=== PATIENT | female | born 1990 | race Caucasian/White ===

== ENCOUNTER 2016-12-15 11:33 | Emergency (ER) | payer OTHER ==
[~2016-12-15] VITALS: Ht 165.1 cm; Wt 289.4 kg
[~2016-12-15 11:33] MED LIST: BACTRIM,SEPT1 TABLET PO; BUTALB-APAP-CA1 EACH PO; CLEOCIN300 MG PO; GRALISE300 MG PO; INDOCIN50 MG PO; NORCO 5/3251 TABLET PO; VALIUM5 MG PO
[2016-12-15 13:49] LABS: HEMATOCRIT 46.4 % (36.0-46.0); MCH 29.6 PG (29.0-34.0); MCHC 31.7 G/DL (30.0-36.0); MCV 93.4 FL (83-99); MEAN PLAT.VOLUME 10.4 uM^3 (9.5-12.4); PLATELET COUNT 238 K/uL (156-360); RBC DIS.WIDTH-CV 15.3 % (11.8-14.6); RBC DIS.WIDTH-SD 52.4 % (39-53); RED BLOOD COUNT 4.97 M/uL (3.80-5.20); WHITE BLOOD COUNT 12.4 K/uL (4.1-10.2)
[2016-12-15 14:02] LABS: CHLORIDE 102 mEq/L (99-109); POTASSIUM 4.5 mEq/L (3.7-5.4); SODIUM 139 mEq/L (136-147)
[2016-12-15 14:03] LABS: GLUCOSE 133 mg/dL (70-99)
[2016-12-15 14:05] LABS: ANION GAP 8 MEQ/L (2-14)
[2016-12-15 14:07] LABS: GFR ESTIMATE (CALCULATED) > 59 mL/min/
[2016-12-15 14:08] LABS: UREA NITROGEN (BUN) 10 mg/dL (9-23)
[2016-12-15 14:14] LABS: TROP-I INTERPRETATION NEGATIVE; TROPONIN-I 0.01 ng/mL (0.0-0.30)
[2016-12-15 14:15] LABS: QUANTITATIVE HCG < 4.0 MIU/ML
[2016-12-15 17:03] LABS: TROP-I INTERPRETATION NEGATIVE; TROPONIN-I < 0.01 ng/mL (0.0-0.30)
[2016-12-15 17:12] LABS: ADD MIUA? YES; BILIRUBIN NEGATIVE; BLOOD LARGE; COLOR YELLOW ((YELLOW)); GLUCOSE (STRIP) NEGATIVE; KETONES NEGATIVE; LEUKOCYTES NEGATIVE; NITRITE NEGATIVE; PROTEIN (STRIP) 30; SPECIFIC GRAVITY 1.018 (1.000-1.030); UROBILINOGEN 0.2 MG/DL (0.2-1.0)
[2016-12-15 17:15] LABS: BACTERIA NONE SEEN /HPF; EPITHELIAL CELLS 1+ /HPF; MUCUS TRACE /LPF; RED BLOOD CELLS TNTC /HPF (0-5); UCUL ADDED? YES
[2016-12-15] MEDS ORDERED: NAPROXEN500 MG PO (17:51)
[2016-12-15 18:13] VITALS: BP 156/89
== END 2016-12-15 18:15 | disposition home or self-care (01) ==
LOC: EME 11:33
PROVIDERS: Physician Assistant Medical
DX: M54.2 Cervicalgia (principal); R07.9 Chest pain, unspecified; M79.89 Other specified soft tissue disorders; J45.909 Unspecified asthma, uncomplicated; F32.9 Major depressive disorder, single episode, unspecified; F31.9 Bipolar disorder, unspecified; F41.9 Anxiety disorder, unspecified; Z88.0 Allergy status to penicillin; F17.200 Nicotine dependence, unspecified, uncomplicated
CPT/HCPCS: 71020; 78582; 80048; 81003; 84484; 84702; 85027; 85379; 87086; 93005; 93971; 99281; 99285; A9540; A9567; J1885

== ENCOUNTER 2017-09-23 23:51 | Inpatient (IN) | payer OTHER ==
[~2017-09-23] VITALS: Ht 165.1 cm; Wt 343.0 kg
[~2017-09-23 23:51] MED LIST changes: +NAPROXEN500 MG PO
[2017-09-24] VITALS (15 sets, daily range): BP systolic 119–167; BP diastolic 69–117
[2017-09-24 02:01] LABS: HEMATOCRIT 42.5 % (36.0-46.0); MCH 25.4 PG (29.0-34.0); MCHC 28.2 G/DL (30.0-36.0); MCV 89.9 FL (83-99); NRBC (%) 0.1 /100 WBC (0-0); PLATELET COUNT 236 K/uL (156-360); RBC DIS.WIDTH-CV 20.4 % (11.8-14.6); RBC DIS.WIDTH-SD 64.6 % (39-53); RED BLOOD COUNT 4.73 M/uL (3.80-5.20); WHITE BLOOD COUNT 13.7 K/uL (4.1-10.2)
[2017-09-24 02:10] LABS: CHLORIDE 103 mEq/L (99-109); POTASSIUM 5.7 mEq/L (3.7-5.4); SODIUM 139 mEq/L (136-147)
[2017-09-24 02:12] LABS: GLUCOSE 127 mg/dL (70-99)
[2017-09-24 02:15] LABS: CREATININE 0.9 mg/dL (0.6-1.3); GFR ESTIMATE (CALCULATED) > 59 mL/min/
[2017-09-24 02:16] LABS: UREA NITROGEN (BUN) 24 mg/dL (9-23)
[2017-09-24 02:22] LABS: TROP-I INTERPRETATION NEGATIVE; TROPONIN-I 0.17 ng/mL (0.0-0.30)
[2017-09-24 06:28] LABS: TROP-I INTERPRETATION NEGATIVE; TROPONIN-I 0.12 ng/mL (0.0-0.30)
[2017-09-24 07:15] LABS: COMMENTS - BLOOD GASES A+C+; DEVICE HHNC; FI02 80 %; O2 FLOW 40 L/MIN; SITE LR; TOTAL RESP RATE 22 resp/min
[2017-09-24 07:16] LABS: BICARBONATE 30.3 mEq/L (22-26); CARBOXY HGB 4.4 % (0-5); O2 SATURATION (CALCULATED) 96.3 % (95-99); PCO2 69 mm Hg (35-45); PO2 77 mm Hg (80-100); pH 7.25 (7.35-7.45)
[2017-09-24 07:19] LABS: BASE EXCESS 1.3 mEq/L (-3 to +3)
[2017-09-24 12:17] LABS: SITE LR
[2017-09-24 12:18] LABS: COMMENTS - BLOOD GASES A+C+; DEVICE VENT; FI02 60 %; PEEP 5 CM/H20; PRES. SUPPORT 15 CM/H2O; TOTAL RESP RATE 20 resp/min; pH 7.23 (7.35-7.45)
[2017-09-24 12:19] LABS: BASE EXCESS 2.1 mEq/L (-3 to +3); BICARBONATE 31.8 mEq/L (22-26); CARBOXY HGB 3.2 % (0-5); METHEMOGLOBIN 0.9 % (0-1.5); PCO2 76 mm Hg (35-45); PO2 88 mm Hg (80-100)
[2017-09-24 12:30] LABS: TROP-I INTERPRETATION NEGATIVE; TROPONIN-I 0.13 ng/mL (0.0-0.30)
[2017-09-24 18:46] LABS: COMMENTS - BLOOD GASES A+C+; DEVICE VENT; FI02 100 %; MECHANICAL RATE 20 resp/min; MODE AC/VC; PCO2 70 mm Hg (35-45); PEEP 5 CM/H20; PO2 109 mm Hg (80-100); SITE LR; TIDAL VOLUME 450 ML; TOTAL RESP RATE 23 resp/min; pH 7.26 (7.35-7.45)
[2017-09-24 18:47] LABS: BASE EXCESS 2.4 mEq/L (-3 to +3); BICARBONATE 31.4 mEq/L (22-26); CARBOXY HGB 2.4 % (0-5); METHEMOGLOBIN 0.8 % (0-1.5)
[2017-09-24 19:56] LABS: BASOPHIL (%) 0.1 % (0-1); EOSINOPHIL (%) 0.1 % (0-5); HEMATOCRIT 41.8 % (36.0-46.0); HEMOGLOBIN 11.5 G/DL (11.9-15.5); IMMATURE GRANULOCYTE (%) 0.6 % (0.0-0.7); LYMPHOCYTE (%) 7.7 % (15-42); LYMPHOCYTE COUNT 0.8 K/uL (1.0-2.8); MCHC 27.5 G/DL (30.0-36.0); MCV 90.9 FL (83-99); MONOCYTE (%) 2.9 % (3-12); MONOCYTE COUNT 0.3 K/uL (0-0.8); NEUTROPHIL (%) 88.6 % (45-76); NEUTROPHIL COUNT 9.1 K/uL (1.8-6.4); NRBC (%) 0.4 /100 WBC (0-0); PLATELET COUNT 233 K/uL (156-360); RBC DIS.WIDTH-CV 20.1 % (11.8-14.6); RBC DIS.WIDTH-SD 64.4 % (39-53); WHITE BLOOD COUNT 10.2 K/uL (4.1-10.2)
[2017-09-24 19:57] LABS: CHLORIDE 102 MEQ/L (99-109); CREATININE 0.8 MG/DL (0.6-1.3); GFR ESTIMATE (CALCULATED) > 59 mL/min/; GLUCOSE 155 mg/dL (70-99); MAGNESIUM 2.1 mg/dl (1.3-2.7); PHOSPHORUS 5.7 mg/dL (2.5-4.9); POTASSIUM 5.8 MEQ/L (3.7-5.4); SODIUM 137 MEQ/L (136-147); UREA NITROGEN (BUN) 28 mg/dL (9-23)
[2017-09-24 20:17] LABS: COMMENTS - BLOOD GASES C; DEVICE VENT; FI02 100 %; MODE AC; SITE LR
[2017-09-24 20:18] LABS: BICARBONATE 30.4 mEq/L (22-26); CARBOXY HGB 2.8 % (0-5); MECHANICAL RATE 22 resp/min; METHEMOGLOBIN 0.5 % (0-1.5); O2 SATURATION (CALCULATED) 96.3 % (95-99); PCO2 59 mm Hg (35-45); PEEP 5 CM/H20; PO2 114 mm Hg (80-100); TIDAL VOLUME 520 ML; TOTAL RESP RATE 22 resp/min; pH 7.32 (7.35-7.45)
== END 2017-09-24 22:00 | disposition short-term general hospital (02) | DRG 189 ==
LOC: EME → EDBD 23:51 → EDOF 09-24 04:23 → ENRESERV 09-24 04:27 → 4EAST 09-24 06:15 → ENRESERV 09-24 09:44 → 4WEST 09-24 10:36
PROVIDERS: Emergency Medicine; Hospitalist; Specialist
PROC: 5A09357 Assistance with Respiratory Ventilation, Less than 24 Consecutive Hours, Continuous Positive Airway Pressure (ICD-10-PCS; principal; 2017-09-24)
PROC: 02HV33Z Insertion of Infusion Device into Superior Vena Cava, Percutaneous Approach (ICD-10-PCS; 2017-09-24)
PROC: 0BH17EZ Insertion of Endotracheal Airway into Trachea, Via Natural or Artificial Opening (ICD-10-PCS; 2017-09-24)
DX: J96.01 Acute respiratory failure with hypoxia (principal); L03.115 Cellulitis of right lower limb; J96.02 Acute respiratory failure with hypercapnia; L03.116 Cellulitis of left lower limb; L03.312 Cellulitis of back [any part except buttock and flank]; L03.317 Cellulitis of buttock; I50.810 Right heart failure, unspecified; J45.901 Unspecified asthma with (acute) exacerbation; I27.29 Other secondary pulmonary hypertension; E87.2 Acidosis; E87.5 Hyperkalemia; E66.2 Morbid (severe) obesity with alveolar hypoventilation; Z68.45 Body mass index [BMI] 70 or greater, adult; F17.210 Nicotine dependence, cigarettes, uncomplicated; F31.9 Bipolar disorder, unspecified; F41.9 Anxiety disorder, unspecified; G89.29 Other chronic pain; M54.9 Dorsalgia, unspecified; R26.9 Unspecified abnormalities of gait and mobility; K21.9 Gastro-esophageal reflux disease without esophagitis; Z74.01 Bed confinement status; Z88.0 Allergy status to penicillin
CPT/HCPCS: 36600; 71045; 73590; 80048; 80048 91; 80202; 81003; 83605; 83735; 83880; 84100; 84484; 85025; 85027; 87040; 87070; 87075; 87205; 87641; 93005; 93971; 94002; 94640; 94760; 94799; 99281; 99285; C1751; C1769; C9113; J0330; J1650; J1885; J1940; J2250; J2270; J2704; J2930; J3010; J3370; J7030; S0073